=== PATIENT | female | born 1980 | race African-American/Black ===

== ENCOUNTER 2016-09-22 09:20 | Emergency (ER) | payer OTHER ==
[~2016-09-22] VITALS: Ht 167.6 cm; Wt 105.2 kg
[~2016-09-22 09:20] MED LIST: ADDERALL 10 MG10 MG; AUGMENTIN 500-1 EACH PO; CLEOCIN HCL300 MG PO; CLONIDINE HCL0.3 M3; FLEXERIL PO; IBUPROFEN 800800 MG PO; LISINOPRIL10 MG; NORCO 5-325 TA1 EACH PO; PREDNISONE50 MG PO; PROMETHAZINE-C120 ML PO; TRAMADOL 50 MG50 MG PO; XANAX 0.5 MG0.5 MG; ZPAK PO
[2016-09-22 10:08] LABS: URINE BILIRUBIN NEGATIVE (Negative); URINE BLOOD 1+ (Negative); URINE COLOR YELLOW; URINE GLUCOSE-RANDOM* NEGATIVE (Negative); URINE KETONES NEGATIVE (Negative); URINE NITRITE NEGATIVE (Negative); URINE PROTEIN (DIPSTICK) NEGATIVE (Negative)
[2016-09-22 10:11] LABS: ABSOLUTE NEUTROPHILS 2.5 thou/uL (1.4-8.2); BASOPHILS 0.3 % (0.0-2.0); EOSINOPHILS 0.9 % (0.0-3.0); HEMOGLOBIN 12.1 gm/dL (12.0-15.0); LYMPHOCYTES 29.4 % (24.0-44.0); MCH 21.9 pg (26.0-34.0); MCHC 31.8 g/dL (28.0-37.0); MCV 68.9 fL (80.0-100.0); MONOCYTES 11.7 % (1.0-8.0); PLATELET COUNT 225 thou/uL (150-400); POLYS 57.7 % (36.0-66.0); RBC 5.51 mil/uL (4.20-5.00); RDW 15.3 % (10.5-14.5); WBC 4.3 thou/uL (4.0-11.0)
[2016-09-22 10:12] LABS: MANUAL DIFF NO
[2016-09-22 10:22] LABS: CALCIUM 8.8 mg/dL (8.5-10.1); CREATININE 0.8 mg/dL (0.6-1.0); POTASSIUM 3.7 mmol/L (3.5-5.1)
[2016-09-22 10:24] LABS: ALBUMIN 3.7 g/dL (3.4-5.0); TOTAL BILIRUBIN 0.4 mg/dL (<0.1-1.0); TOTAL PROTEIN 7.8 g/dL (6.4-8.2)
[2016-09-22 10:25] LABS: SQUAMOUS 0-3 Few /LPF (0-3)
[2016-09-22 10:26] LABS: CASTS None Seen /LPF (None Seen); URINE RBC 3-10 Few /HPF (0-2)
[2016-09-22 10:27] LABS: BACTERIA 1-9 Few /HPF (None Seen); CRYSTALS None Seen /LPF (None Seen); URINE WBC 0-5 Rare /HPF (0-5)
[2016-09-22 10:35] LABS: ANISOCYTOSIS 1+; HYPOCHROMASIA 2+; MICROCYTES 2+; PLATELET ESTIMATE NORMAL
[2016-09-22] MEDS ORDERED: COZAAR 25 MG TA25 M1 PO (10:59)
[2016-09-22] MEDS ORDERED: CLARITIN10 MG PO (11:00)
[2016-09-22] MEDS ORDERED: FLONASE 0.05%50 MCG NASAL (11:34)
[2016-09-22] MEDS ORDERED: TESSALON PERLE100 MG PO (11:34)
[2016-09-22 13:16] VITALS: BP 177/96
== END 2016-09-22 12:55 | disposition home or self-care (01) ==
LOC: ER 09:20
PROVIDERS: Physician Assistant
DX: J30.9 Allergic rhinitis, unspecified (principal); B34.9 Viral infection, unspecified; J02.9 Acute pharyngitis, unspecified; I10 Essential (primary) hypertension